=== PATIENT | male | born 1960 | race African-American/Black ===

== ENCOUNTER 2018-08-13 14:50 | Inpatient (IN) | payer OTHER ==
[2018-08-13 16:05] VITALS: BMI 17.7
--- NOTE | 2018-08-13 21:24 | HP ---
CIWA Score Nausea/Vomitin (vomiting x 2) Muscle Tremors: 3 Anxiety: 3 Agitation: 1-Slight > Activity Paroxysmal Sweats: 1-Minimal Palms Moist Orientation: 1-Uncertain about Date Tacttile Disturbances: 0-None Auditory Disturbances: 0-None Visual Disturbances: 0-None Headache: 3-Moderate CIWA-Ar Total Score: 15 - Admission Criteria [facility]AS Guidelines: Admission for Medically Managed Detox: Requires at least one of the followin. CIWA greater than 12 2. Seizures within the past 24 hours 3. Delirium tremens within the past 24 hours 4. Hallucinations within the past 24 hours 5. Acute intervention needed for co occurring medical disorder 6. Acute intervention needed for co occurring psychiatric disorder 7. Severe withdrawal that cannot be handled at a lower level of care (continued vomiting, continued diarrhea, abnormal vital signs) requiring intravenous medication and/or fluids 8. Admission ROS [facility] Chief Complaint: Alcohol withdrawal symptoms Allergies/Adverse Reactions: Allergies Allergy/AdvReac Type Severity Reaction Status Date / Time No Known Allergies Allergy Verified 08/13/18 21:45 History of Present Illness: 57 years old male with a long history of alcohol dependence is seeking admission to detox. Patient has been in multiple detox, last at [place], [place]. He has medical history of depression and asthma. He reports 14 years of sobriety and denies suicidal ideation at this time. This is his first admission to [facility]. Exam Limitations: No Limitations - Ebola screening Have you traveled outside of the country in the last 21 days: No Have you had contact with anyone from an Ebola affected area: No Have you been sick,other than usual withdrawal symptoms: No Do you have a fever: No - Review of Systems Constitutional: Chills, Loss of Appetite, Malaise, Unintentional Wgt. Loss ( reports 20 pounds weight loss in 2 months) EENT: reports: Other (wears reading glasses) Respiratory: reports: No Symptoms reported Cardiac: reports: No Symptoms Reported GI: reports: Poor Appetite, Poor Fluid Intake, Vomiting, Abdominal cramping : reports: No Symptoms Reported Musculoskeletal: reports: No Symptoms Reported, Back Pain Integumentary: reports: Dryness Neuro: reports: Tremors Endocrine: reports: No Symptoms Reported Hematology: reports: No Symptoms Reported Psychiatric: reports: Mood/Affect Appropiate, Orientated x3, Anxious, Depressed Other Systems: Reviewed and Negative Patient History - Patient Medical History Hx Anemia: No Hx Asthma: Yes (Not on medication) Hx Chronic Obstructive Pulmonary Disease (COPD): No Hx Cancer: No Hx Cardiac Disorders: No Hx Congestive Heart Failure: No Hx Hypertension: No Hx Hypercholesterolemia: No Hx Pacemaker: No HX Cerebrovascular Accident: No Hx Seizures: No Hx Dementia: No Hx Diabetes: No Hx Gastrointestinal Disorders: No Hx Liver Disease: No Hx Genitourinary Disorders: No Hx Sexually Transmitted Disorders: No Hx Renal Disease (ESRD): No Hx Thyroid Disease: No Hx Human Immunodeficiency Virus (HIV): No (Negtive 2017) Hx Hepatitis C: No Hx Depression: Yes (Risperdal, Wellbutrin) Hx Suicide Attempt: No (Denies suicidal ideation at this time) Hx Bipolar Disorder: No Hx Schizophrenia: No - Patient Surgical History Past Surgical History: No - PPD History Previous Implant?: Yes Documented Results: Negative w/o proof Implanted On Prior [facility] Admission?: No PPD to be Administered?: Yes - Reproductive History Patient is a Female of Child Bearing Age (11 -55 yrs old): No (MALE) - Smoking Cessation Smoking history: Current every day smoker Have you smoked in the past 12 months: Yes Aproximately how many cigarettes per day: 20 Hx Chewing Tobacco Use: Yes Initiated information on smoking cessation: No 'Breaking Loose' booklet given: 08/13/18 - Substance & Tx. History Hx Alcohol Use: Yes Hx Substance Use: Yes Hx Substance Use Treatment: Yes - Substances Abused Alcohol Route: Oral Frequency: Daily Amount used: BEER 24oz x 5 Age of first use: 16 Date of Last Use: 08/13/18 Family Disease History - Family Disease History Family History: Denies Admission Physical Exam [facility] - Vital Signs Vital Signs: Vital Signs - 24 hr 08/13/18 16:03 Temperature 99.0 F Pulse Rate 60 Respiratory 20 Rate Blood Pressure 149/98 - Physical General Appearance: Yes: Moderate Distress HEENTM: Yes: EOMI, Normal ENT Inspection, Normal Voice, KAT Respiratory: Yes: Lungs Clear, Normal Breath Sounds, No Respiratory Distress Neck: Yes: Supple Breast: Yes: Breast Exam Deferred Cardiology: Yes: Regular Rhythm, Regular Rate Abdominal: Yes: Normal Bowel Sounds, Soft Genitourinary: Yes: Within Normal Limits Back: Yes: Normal Inspection Musculoskeletal: Yes: Within Normal Limits Extremities: Yes: Tremors Neurological: Yes: supervisory examiner II-XII NML intact, Alert, Normal Mood/Affect Integumentary: Yes: Warm Lymphatic: Yes: Within Normal Limits - Diagnostic (1) Asthma Current Visit: Yes Status: Chronic Qualifiers: Asthma severity: mild Asthma persistence: intermittent (2) Depression Current Visit: Yes Status: Chronic Qualifiers: Depression Type: unspecified Qualified Code(s): F32.9 - Major depressive disorder, single episode, unspecified (3) Nicotine dependence Current Visit: Yes Status: Chronic Qualifiers: Nicotine product type: cigarettes Substance use status: uncomplicated Qualified Code(s): F17.210 - Nicotine dependence, cigarettes, uncomplicated (4) Alcohol dependence with uncomplicated withdrawal Current Visit: Yes Status: Acute (5) Barbiturate abuse Current Visit: Yes Status: Chronic Cleared for Admission S - Detox or Rehab [facility] Level of Care: Medically Managed Detox Regimen/Protocol: Librium S Breath Alcohol Content Breath Alcohol Content: 0 Urine Drug Screen - Results Drug Screen Negative: No Urine Drug Screen Results: BAR-Barbiturates
[2018-08-13] MEDS ORDERED: P-EPHED 60MG/TRIPROLIDI 2.5MG TABLET PO PRN (21:45)
[2018-08-13] MEDS ORDERED: LOPERAMIDE HCL 2 MG CAPSULE PO PRN (21:45)
[2018-08-13] MEDS ORDERED: guaiFENesin/D-METHORPHAN HB 10 ML UNIT-DOSE CUPS PO PRN (21:45)
[2018-08-13] MEDS ORDERED: MAGNESIUM HYDROX 2400MG/30ML ORAL SUSPENSION 30 ML CUP PO PRN (21:45)
[2018-08-13] MEDS ORDERED: NICOTINE POLACRILEX 2 MG GUM BUC PRN (21:45)
[2018-08-13] MEDS ORDERED: MAG HYDROX/AL HYDROX/SIMETH 30 ML UNIT-DOSE CUP PO PRN (21:45)
[2018-08-13] MEDS ORDERED: MAGNESIUM CITRATE 300 ML BOTTLE PO PRN (21:45)
[2018-08-13] MEDS ORDERED: IBUPROFEN 400 MG TABLET (FP) PO PRN (21:45)
[2018-08-13] MEDS ORDERED: chlordiazePOXIDE HCL 25 MG CAPSULE PO PRN (21:45)
[2018-08-13] MEDS ORDERED: MENTHOL/PHENOL 1 EACH UD MM PRN (21:45)
[2018-08-13] MEDS ORDERED: ACETAMINOPHEN 325 MG TABLET (FP) PO PRN (21:45)
[2018-08-13] MEDS ORDERED: MELATONIN 5 MG TABLETS PO PRN (22:00)
[2018-08-14] MEDS: chlordiazePOXIDE HCL 25 MG CAPSULE PO SCH ×5 (00:32→22:24)
[2018-08-14] MEDS: THIAMINE HCL 100 MG TABLET (FP) PO SCH ×2 (00:37→22:24)
[2018-08-14 02:56] LABS: URINE APPEARANCE CLEAR; URINE BILIRUBIN NEGATIVE (<2.0 mg/dL); URINE COLOR DKYELLOW; URINE GLUCOSE (UA) NEGATIVE (NEGATIVE); URINE KETONE NEGATIVE (NEGATIVE); URINE LEUK ESTERASE NEGATIVE (NEGATIVE); URINE NITRITE NEGATIVE (NEGATIVE); URINE PROTEIN 2+ (NEGATIVE)
[2018-08-14 03:11] LABS: URINE HYALINE CAST 3 /lpf; URINE MUCUS MODERATE
--- NOTE | 2018-08-14 08:21 | CONSULT ---
[facility] Psychiatric Consult - Data Date of interview: 08/14/18 Admission source: [facility] Identifying data: This is a 57 years old male, widowes, father of one , living alone, on PA support, with psychiatric hospitalization history, with a long history of alcohol and nicotine dependence is reporting withdrawal symptoms and seeking admission to detox. Substance Abuse History: Smoking history: Current every day smoker. Have you smoked in the past 12 months: Yes. Aproximately how many cigarettes per day: 20. Hx Chewing Tobacco Use: Yes. Initiated information on smoking cessation: No. 'Breaking Loose' booklet given: 08/13/18. - Substance & Tx. History. Hx Alcohol Use: Yes. Hx Substance Use: Yes. Hx Substance Use Treatment: Yes. - Substances Abused. Alcohol. Route: Oral. Frequency: Daily. Amount used: BEER 24oz x 5. Age of first use: 16. Date of Last Use: 08/13/18 Medical History: Asthma Psychiatric History: Patient reports history of depression, with most recent psychiatric admission on 2106 at [facility],denies suicidal and homicidal ideations, reports no psychiatrric medications taking this time. Physical/Sexual Abuse/Trauma History: Denies Additional Comment: Observation. Detox Unit Care Protocol Mental Status Exam - Mental Status Exam Alert and Oriented to: Person Cognitive Function: Fair Patient Appearance: Unkempt Mood: Fearful Affect: Mood Congruent Patient Behavior: Cooperative Speech Pattern: Appropriate Voice Loudness: Mildly Soft/Quiet Thought Process: Goal Oriented Thought Disorder: Being Controlled Hallucinations: Denies Suicidal Ideation: Denies Homicidal Ideation: Denies Insight/Judgement: Fair Sleep: Difficulty falling asleep Muscle strength/Tone: Normal Gait/Station: Normal Additional Comments: Observation. Detox Unit Care Protocol Psychiatric Findings - Problem List ([place] 1, 2,3) (1) Alcohol dependence with uncomplicated withdrawal Current Visit: Yes Status: Acute (2) Asthma Current Visit: Yes Status: Chronic Qualifiers: Asthma severity: mild Asthma persistence: intermittent (3) Barbiturate abuse Current Visit: Yes Status: Chronic (4) Depression Current Visit: Yes Status: Chronic Qualifiers: Depression Type: unspecified Qualified Code(s): F32.9 - Major depressive disorder, single episode, unspecified (5) Nicotine dependence Current Visit: Yes Status: Chronic Qualifiers: Nicotine product type: cigarettes Substance use status: uncomplicated Qualified Code(s): F17.210 - Nicotine dependence, cigarettes, uncomplicated - Initial Treatment Plan Initial Treatment Plan: Observation. Detox Unit Care Protocol
[2018-08-14 10:18] LABS: HEMATOCRIT 42.6 % (35.4-49); HEMOGLOBIN 14.1 GM/dL (11.7-16.9); MCH 33.8 pg (25.7-33.7); MCHC 33.2 g/dl (32.0-35.9); MEAN CELL VOLUME 101.8 fl (80-96); MEAN PLT VOLUME 8.3 fl (7.5-11.1); PLATELET COUNT 290 K/MM3 (134-434); RBC 4.19 M/mm3 (4.00-5.60); RDW 13.5 % (11.9-15.9); WHITE BLOOD COUNT 8.9 K/mm3 (4.0-10.0)
[2018-08-14] MEDS: NICOTINE 14 MG/24 HOURS TOPICAL PATCH TD SCH (10:22)
[2018-08-14] MEDS: PRENATAL VITAMINS W/ FOLIC ACID TABLET (FP) PO SCH (10:22)
[2018-08-14 10:55] LABS: ALBUMIN 3.7 g/dl (3.4-5.0); ALK PHOS 72 U/L (45-117); ANION GAP 5 MMOL/L (8-16); BILIRUBIN,TOTAL 0.9 mg/dL (0.2-1); BLOOD UREA NITROGEN 13 mg/dL (7-18); CALCIUM 8.8 mg/dL (8.5-10.1); CHLORIDE 110 mmol/L (98-107); CO2 28 mmol/L (21-32); CREATININE 0.9 mg/dL (0.55-1.3); GLUCOSE,RANDOM 78 mg/dL (74-106); POTASSIUM 4.4 mmol/L (3.5-5.1); SGOT/AST 24 U/L (15-37); SGPT/ALT 20 U/L (13-61); SODIUM 143 mmol/L (136-145); TOT PROT 7.6 g/dl (6.4-8.2)
--- NOTE | 2018-08-14 11:55 | EKG ---
Test Reason : Blood Pressure : / mmHG Vent. Rate : 050 BPM Atrial Rate : 050 BPM P-R Int : 122 ms QRS Dur : 084 ms QT Int : 472 ms P-R-T Axes : 070 061 060 degrees QTc Int : 430 ms POOR DATA QUALITY, INTERPRETATION MAY BE ADVERSELY AFFECTED SINUS BRADYCARDIA POSSIBLE INFERIOR INFARCT , AGE UNDETERMINED ABNORMAL ECG NO PREVIOUS ECGS AVAILABLE Confirmed by ALLISON CAMERON MD ([id number]) on 08/14/2018 11:54:53 AM Referred By: Confirmed By:ALLISON CAMERON MD
--- NOTE | 2018-08-14 14:30 | PN ---
[facility] CIWA - CIWA Score Nausea/Vomitin-No Nausea/No Vomiting Muscle Tremors: 4-Moderate,w/Arms Extend Anxiety: 3 Agitation: 1-Slight > Activity Paroxysmal Sweats: No Perspiration Orientation: 2-Disoriented Date<2 days Tacttile Disturbances: 2-Mild Itch/Numbness/Burn Auditory Disturbances: 0-None Visual Disturbances: 3-Moderate Sensitivity Headache: 0-None Present CIWA-Ar Total Score: 15 S Progress Note (SOAP) Subjective: Stomach Cramping, Tremors, Fatigue. Objective: PATIENT A & O X 2 (UNCERTAIN ABOUT CURRENT DAY / DATE). NO ACUTE DISTRESS. 08/14/18 14:27 Vital Signs Temperature 98.2 F 08/14/18 13:17 Pulse Rate 74 08/14/18 13:17 Respiratory Rate 18 08/14/18 13:17 Blood Pressure 134/91 08/14/18 13:17 O2 Sat by Pulse Oximetry (%) Laboratory Tests 08/14/18 08/14/18 08/14/18 00:00 07:00 07:00 WBC 8.9 RBC 4.19 Hgb 14.1 Hct 42.6 MCV 101.8 H MCH 33.8 H MCHC 33.2 RDW 13.5 Plt Count 290 MPV 8.3 Sodium 143 Potassium 4.4 Chloride 110 H Carbon Dioxide 28 Anion Gap 5 L BUN 13 Creatinine 0.9 Creat Clearance w eGFR > 60 Random Glucose 78 Calcium 8.8 Total Bilirubin 0.9 AST 24 ALT 20 Alkaline Phosphatase 72 Total Protein 7.6 Albumin 3.7 Urine Color Dkyellow Urine Appearance Clear Urine pH 5.0 Ur Specific [place] 1.026 Urine Protein 2+ H Urine Glucose (UA) Negative Urine Ketones Negative Urine Blood Negative Urine Nitrite Negative Urine Bilirubin Negative Urine Urobilinogen 2.0 Ur Leukocyte Esterase Negative Urine WBC (Auto) <1 Urine RBC (Auto) 2 Hyaline Casts 3 Urine Mucus Moderate RPR Titer 08/14/18 07:00 WBC RBC Hgb Hct MCV MCH MCHC RDW Plt Count MPV Sodium Potassium Chloride Carbon Dioxide Anion Gap BUN Creatinine Creat Clearance w eGFR Random Glucose Calcium Total Bilirubin AST ALT Alkaline Phosphatase Total Protein Albumin Urine Color Urine Appearance Urine pH Ur Specific [place] Urine Protein Urine Glucose (UA) Urine Ketones Urine Blood Urine Nitrite Urine Bilirubin Urine Urobilinogen Ur Leukocyte Esterase Urine WBC (Auto) Urine RBC (Auto) Hyaline Casts Urine Mucus RPR Titer Nonreactive LABS NOTED. 08/14/18 14:30 Assessment: 08/14/18 14:28 WITHDRAWAL SYMPTOMS. Plan: CONTINUE DETOX.
--- NOTE | 2018-08-14 16:56 | PN ---
S Progress Note Note: PATIENT APPLIED PAULA-BUCHANAN TO DENTURES INSTEAD OF FIXEDENT AND SWALLOWED A SMALL AMOUNT OF PAULA-BUCHANAN. PATIENT DENIES ANY PAIN TO ORAL MUCOSA OR ABDOMINAL PAIN, VOMITING OR DIARRHEA. ORAL MUCOSA MOIST AND PINK, NO VISIBLE ULCERATIONS OR INFLAMMATION NOTED. SKIN WARM AND DRY, EXT FULL ROM, AMB AD PHILIPPE. NO REDNESS OR SWELLING OF EXTREMITIES NOTED. PATIENT REMAINS ALERT AND ORIENTED X 3. WILL ORDER PERIDEX MM AND CONTINUE TO MONITOR.
[2018-08-14] MEDS ORDERED: CHLORHEXIDINE GLUCONATE 0.12% 15ML CUP MM SCH (22:00)
[2018-08-15] MEDS: chlordiazePOXIDE HCL 25 MG CAPSULE PO SCH ×3 (06:07→18:18)
[2018-08-15] MEDS: PRENATAL VITAMINS W/ FOLIC ACID TABLET (FP) PO SCH (10:45)
[2018-08-15] MEDS: NICOTINE 14 MG/24 HOURS TOPICAL PATCH TD SCH (10:46)
[2018-08-15] MEDS: CHLORHEXIDINE GLUCONATE 118 ML MOUTHWASH MM SCH (11:00)
--- NOTE | 2018-08-15 15:47 | PN ---
S CIWA - CIWA Score Nausea/Vomitin-Mild Nausea/No Vomiting Muscle Tremors: 2 Anxiety: 1-Mildly Anxious Agitation: 1-Slight > Activity Paroxysmal Sweats: No Perspiration Orientation: 0-Oriented Tacttile Disturbances: 0-None Auditory Disturbances: 0-None Visual Disturbances: 0-None Headache: 0-None Present CIWA-Ar Total Score: 5 [facility] Progress Note (SOAP) Subjective: pt states he is fine. O: Vital Signs - 24 hr 08/14/18 08/14/18 08/14/18 17:50 17:51 22:05 Temperature 98.2 F 98.2 F Pulse Rate 59 L 59 L 59 L Respiratory 18 18 18 Rate Blood Pressure 140/101 H 148/104 H 141/102 H 08/14/18 08/15/18 08/15/18 23:53 00:30 03:30 Temperature Pulse Rate Respiratory 18 18 Rate Blood Pressure 120/92 08/15/18 08/15/18 08/15/18 08:15 09:31 13:48 Temperature 97.9 F 98.2 F 98.1 F Pulse Rate 53 L 89 59 L Respiratory 18 20 18 Rate Blood Pressure 121/76 118/90 124/85 Laboratory Tests 08/14/18 08/14/18 08/14/18 00:00 07:00 07:00 WBC 8.9 RBC 4.19 Hgb 14.1 Hct 42.6 MCV 101.8 H MCH 33.8 H MCHC 33.2 RDW 13.5 Plt Count 290 MPV 8.3 Sodium 143 Potassium 4.4 Chloride 110 H Carbon Dioxide 28 Anion Gap 5 L BUN 13 Creatinine 0.9 Creat Clearance w eGFR > 60 Random Glucose 78 Calcium 8.8 Total Bilirubin 0.9 AST 24 ALT 20 Alkaline Phosphatase 72 Total Protein 7.6 Albumin 3.7 Urine Color Dkyellow Urine Appearance Clear Urine pH 5.0 Ur Specific [place] 1.026 Urine Protein 2+ H Urine Glucose (UA) Negative Urine Ketones Negative Urine Blood Negative Urine Nitrite Negative Urine Bilirubin Negative Urine Urobilinogen 2.0 Ur Leukocyte Esterase Negative Urine WBC (Auto) <1 Urine RBC (Auto) 2 Hyaline Casts 3 Urine Mucus Moderate RPR Titer 08/14/18 07:00 WBC RBC Hgb Hct MCV MCH MCHC RDW Plt Count MPV Sodium Potassium Chloride Carbon Dioxide Anion Gap BUN Creatinine Creat Clearance w eGFR Random Glucose Calcium Total Bilirubin AST ALT Alkaline Phosphatase Total Protein Albumin Urine Color Urine Appearance Urine pH Ur Specific [place] Urine Protein Urine Glucose (UA) Urine Ketones Urine Blood Urine Nitrite Urine Bilirubin Urine Urobilinogen Ur Leukocyte Esterase Urine WBC (Auto) Urine RBC (Auto) Hyaline Casts Urine Mucus RPR Titer Nonreactive VS OK Labs WNL a/p: alcohol use disorder: stable, completing alcohol detox protocol.
[2018-08-16] MEDS: CHLORHEXIDINE GLUCONATE 118 ML MOUTHWASH MM SCH ×3 (00:13→22:30)
[2018-08-16] MEDS: THIAMINE HCL 100 MG TABLET (FP) PO SCH ×2 (00:14→22:23)
[2018-08-16] MEDS: chlordiazePOXIDE 5 MG CAPSULE PO SCH ×4 (00:14→18:00)
--- NOTE | 2018-08-16 10:07 | PN ---
[facility] Progress Note (SOAP) Subjective: Interrupted sleep, non-productive cough and malaise Objective: 08/16/18 10:06 Vital Signs 08/16/18 08/16/18 08/16/18 03:30 06:00 06:30 Temperature 97.0 F L Pulse Rate 55 L Respiratory 16 18 18 Rate Blood Pressure 137/95 08/16/18 09:18 Temperature 98.7 F Pulse Rate 83 Respiratory 18 Rate Blood Pressure 133/107 H Laboratory Last Values WBC 8.9 K/mm3 (4.0-10.0) 08/14/18 07:00 RBC 4.19 M/mm3 (4.00-5.60) 08/14/18 07:00 Hgb 14.1 GM/dL (11.7-16.9) 08/14/18 07:00 Hct 42.6 % (35.4-49) 08/14/18 07:00 MCV 101.8 fl (80-96) H 08/14/18 07:00 MCH 33.8 pg (25.7-33.7) H 08/14/18 07:00 MCHC 33.2 g/dl (32.0-35.9) 08/14/18 07:00 RDW 13.5 % (11.9-15.9) 08/14/18 07:00 Plt Count 290 K/MM3 (134-434) 08/14/18 07:00 MPV 8.3 fl (7.5-11.1) 08/14/18 07:00 Sodium 143 mmol/L (136-145) 08/14/18 07:00 Potassium 4.4 mmol/L (3.5-5.1) 08/14/18 07:00 Chloride 110 mmol/L (98-107) H 08/14/18 07:00 Carbon Dioxide 28 mmol/L (21-32) 08/14/18 07:00 Anion Gap 5 MMOL/L (8-16) L 08/14/18 07:00 BUN 13 mg/dL (7-18) 08/14/18 07:00 Creatinine 0.9 mg/dL (0.55-1.3) 08/14/18 07:00 Creat Clearance w eGFR > 60 (>60) 08/14/18 07:00 Random Glucose 78 mg/dL (74-106) 08/14/18 07:00 Calcium 8.8 mg/dL (8.5-10.1) 08/14/18 07:00 Total Bilirubin 0.9 mg/dL (0.2-1) 08/14/18 07:00 AST 24 U/L (15-37) 08/14/18 07:00 ALT 20 U/L (13-61) 08/14/18 07:00 Alkaline Phosphatase 72 U/L (45-117) 08/14/18 07:00 Total Protein 7.6 g/dl (6.4-8.2) 08/14/18 07:00 Albumin 3.7 g/dl (3.4-5.0) 08/14/18 07:00 Urine Color Dkyellow 08/14/18 00:00 Urine Appearance Clear 08/14/18 00:00 Urine pH 5.0 (5.0-8.0) 08/14/18 00:00 Ur Specific [place] 1.026 (1.010-1.035) 08/14/18 00:00 Urine Protein 2+ (NEGATIVE) H 08/14/18 00:00 Urine Glucose (UA) Negative (NEGATIVE) 08/14/18 00:00 Urine Ketones Negative (NEGATIVE) 08/14/18 00:00 Urine Blood Negative (NEGATIVE) 08/14/18 00:00 Urine Nitrite Negative (NEGATIVE) 08/14/18 00:00 Urine Bilirubin Negative (<2.0 mg/dL) 08/14/18 00:00 Urine Urobilinogen 2.0 mg/dL (0.2-1.0) 08/14/18 00:00 Ur Leukocyte Esterase Negative (NEGATIVE) 08/14/18 00:00 Urine WBC (Auto) <1 /hpf (3-5) 08/14/18 00:00 Urine RBC (Auto) 2 /hpf (0-3) 08/14/18 00:00 Hyaline Casts 3 /lpf 08/14/18 00:00 Urine Mucus Moderate 08/14/18 00:00 RPR Titer Nonreactive (NONREACTIVE) 08/14/18 07:00 Labs noted No SOB, LCTA Assessment: 08/16/18 10:06 Withdrawal sx Cough Plan: Continue detox Cough medicine as ordered
[2018-08-16] MEDS: PRENATAL VITAMINS W/ FOLIC ACID TABLET (FP) PO SCH (11:00)
[2018-08-16] MEDS: NICOTINE 14 MG/24 HOURS TOPICAL PATCH TD SCH (11:00)
[2018-08-16] MEDS: chlordiazePOXIDE HCL 10 MG CAPSULE PO SCH (22:23)
[2018-08-17] MEDS: chlordiazePOXIDE HCL 10 MG CAPSULE PO SCH (05:14)
--- NOTE | 2018-08-17 08:28 | DS ---
[facility] Detox Discharge Summary Admission Date: 08/13/18 Discharge Date: 08/17/18 - History Present History: Alcohol Dependence Additional Comments: 57 years old male admitted on 08/13/18 for alcohol withdrawal sx completed alcohol detox regimen tolerated well denies alcohol withdrawal sx alert oriented x 3 no acute distress aftercare [facility] - Physical Exam Results Vital Signs: Vital Signs Temperature 97.5 F L 08/17/18 06:00 Pulse Rate 49 L 08/17/18 06:00 Respiratory Rate 18 08/17/18 06:00 Blood Pressure 104/66 08/17/18 06:00 O2 Sat by Pulse Oximetry (%) Pertinent Admission Physical Exam Findings: alcohol withdrawal sx Vital Signs Temperature 97.5 F L 08/17/18 06:00 Pulse Rate 49 L 08/17/18 06:00 Respiratory Rate 18 08/17/18 06:00 Blood Pressure 104/66 08/17/18 06:00 O2 Sat by Pulse Oximetry (%) Laboratory Last Values WBC 8.9 K/mm3 (4.0-10.0) 08/14/18 07:00 RBC 4.19 M/mm3 (4.00-5.60) 08/14/18 07:00 Hgb 14.1 GM/dL (11.7-16.9) 08/14/18 07:00 Hct 42.6 % (35.4-49) 08/14/18 07:00 MCV 101.8 fl (80-96) H 08/14/18 07:00 MCH 33.8 pg (25.7-33.7) H 08/14/18 07:00 MCHC 33.2 g/dl (32.0-35.9) 08/14/18 07:00 RDW 13.5 % (11.9-15.9) 08/14/18 07:00 Plt Count 290 K/MM3 (134-434) 08/14/18 07:00 MPV 8.3 fl (7.5-11.1) 08/14/18 07:00 Sodium 143 mmol/L (136-145) 08/14/18 07:00 Potassium 4.4 mmol/L (3.5-5.1) 08/14/18 07:00 Chloride 110 mmol/L (98-107) H 08/14/18 07:00 Carbon Dioxide 28 mmol/L (21-32) 08/14/18 07:00 Anion Gap 5 MMOL/L (8-16) L 08/14/18 07:00 BUN 13 mg/dL (7-18) 08/14/18 07:00 Creatinine 0.9 mg/dL (0.55-1.3) 08/14/18 07:00 Creat Clearance w eGFR > 60 (>60) 08/14/18 07:00 Random Glucose 78 mg/dL (74-106) 08/14/18 07:00 Calcium 8.8 mg/dL (8.5-10.1) 08/14/18 07:00 Total Bilirubin 0.9 mg/dL (0.2-1) 08/14/18 07:00 AST 24 U/L (15-37) 08/14/18 07:00 ALT 20 U/L (13-61) 08/14/18 07:00 Alkaline Phosphatase 72 U/L (45-117) 08/14/18 07:00 Total Protein 7.6 g/dl (6.4-8.2) 08/14/18 07:00 Albumin 3.7 g/dl (3.4-5.0) 08/14/18 07:00 Urine Color Dkyellow 08/14/18 00:00 Urine Appearance Clear 08/14/18 00:00 Urine pH 5.0 (5.0-8.0) 08/14/18 00:00 Ur Specific [place] 1.026 (1.010-1.035) 08/14/18 00:00 Urine Protein 2+ (NEGATIVE) H 08/14/18 00:00 Urine Glucose (UA) Negative (NEGATIVE) 08/14/18 00:00 Urine Ketones Negative (NEGATIVE) 08/14/18 00:00 Urine Blood Negative (NEGATIVE) 08/14/18 00:00 Urine Nitrite Negative (NEGATIVE) 08/14/18 00:00 Urine Bilirubin Negative (<2.0 mg/dL) 08/14/18 00:00 Urine Urobilinogen 2.0 mg/dL (0.2-1.0) 08/14/18 00:00 Ur Leukocyte Esterase Negative (NEGATIVE) 08/14/18 00:00 Urine WBC (Auto) <1 /hpf (3-5) 08/14/18 00:00 Urine RBC (Auto) 2 /hpf (0-3) 08/14/18 00:00 Hyaline Casts 3 /lpf 08/14/18 00:00 Urine Mucus Moderate 08/14/18 00:00 RPR Titer Nonreactive (NONREACTIVE) 08/14/18 07:00 lab noted - Treatment Hospital Course: Detox Protocol Followed, Detoxed Safely, Responded well, Discharged Condition Good, Rehab Referral Accepted Patient has Accepted a Rehab Referral to: [facility] - Medication Discharge Medications: Ambulatory Orders NK [No Known Home Medication] 08/13/18 - Diagnosis (1) Alcohol dependence with uncomplicated withdrawal Current Visit: Yes Status: Acute (2) Asthma Current Visit: Yes Status: Chronic Qualifiers: Asthma severity: mild Asthma persistence: intermittent Asthma complication type: uncomplicated Qualified Code(s): J45.20 - Mild intermittent asthma, uncomplicated (3) Nicotine dependence Current Visit: Yes Status: Acute Qualifiers: Nicotine product type: cigarettes Substance use status: in withdrawal Qualified Code(s): F17.213 - Nicotine dependence, cigarettes, with withdrawal - AMA Did Patient Leave Against Medical Advice: No
[2018-08-17 09:51] VITALS: BP 104/66; PULSE 49; TEMP 97.5
== END 2018-08-17 09:15 | disposition home or self-care (01) | DRG 775 ==
LOC: YASAS 14:50 → Y6N 21:26
PROC: HZ2ZZZZ Detoxification Services for Substance Abuse Treatment (ICD-10-PCS; principal; 2018-08-13)
DX: F10.230 Alcohol dependence with withdrawal, uncomplicated (principal); F13.10 Sedative, hypnotic or anxiolytic abuse, uncomplicated; F17.213 Nicotine dependence, cigarettes, with withdrawal; F32.9 Major depressive disorder, single episode, unspecified; J45.20 Mild intermittent asthma, uncomplicated
CPT/HCPCS: 36415; 80053; 81003; 81015; 85027; 86593; 93005; 93010

== ENCOUNTER 2018-09-06 11:07 | Inpatient (IN) | payer OTHER ==
[2018-09-06 11:28] VITALS: BMI 18.1
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
[2018-09-06] MEDS ORDERED: MAG HYDROX/AL HYDROX/SIMETH 30 ML UNIT-DOSE CUP PO PRN (11:58)
[2018-09-06] MEDS ORDERED: MAGNESIUM CITRATE 300 ML BOTTLE PO PRN (11:58)
[2018-09-06] MEDS ORDERED: ACETAMINOPHEN 325 MG TABLET (FP) PO PRN (11:58)
[2018-09-06] MEDS ORDERED: hydrOXYzine PAMOATE 25 MG CAPSULE (FP) PO PRN (11:58)
[2018-09-06] MEDS ORDERED: LOPERAMIDE HCL 2 MG CAPSULE PO PRN (11:58)
[2018-09-06] MEDS ORDERED: P-EPHED 60MG/TRIPROLIDI 2.5MG TABLET PO PRN (11:58)
[2018-09-06] MEDS ORDERED: chlordiazePOXIDE HCL 25 MG CAPSULE PO PRN (11:58)
[2018-09-06] MEDS ORDERED: MENTHOL/PHENOL 1 EACH UD MM PRN (11:58)
[2018-09-06] MEDS ORDERED: MAGNESIUM HYDROX 2400MG/30ML ORAL SUSPENSION 30 ML CUP PO PRN (11:58)
[2018-09-06] MEDS ORDERED: ALBUTEROL SO4 8 GM HFA INHALER IH PRN (12:00)
[2018-09-06] MEDS: NICOTINE 21 MG/24 HOURS TOPICAL PATCH TD SCH (13:28)
[2018-09-06] MEDS: chlordiazePOXIDE HCL 25 MG CAPSULE PO SCH ×2 (17:56→22:38)
[2018-09-06 18:02] LABS: URINE APPEARANCE CLEAR; URINE BILIRUBIN NEGATIVE (<2.0 mg/dL); URINE COLOR AMBER; URINE GLUCOSE (UA) NEGATIVE (NEGATIVE); URINE KETONE NEGATIVE (NEGATIVE); URINE LEUK ESTERASE NEGATIVE (NEGATIVE); URINE NITRITE NEGATIVE (NEGATIVE); URINE PROTEIN 2+ (NEGATIVE)
[2018-09-06 18:22] LABS: EPI CELLS RARE /HPF (FEW); GRANULAR CASTS 2 /lpf; URINE HYALINE CAST 27 /lpf; URINE MUCUS FEW
[2018-09-06] MEDS ORDERED: MELATONIN 5 MG TABLETS PO PRN (22:00)
[2018-09-06] MEDS: THIAMINE HCL 100 MG TABLET (FP) PO SCH (22:38)
[2018-09-06] MEDS: BUDESONIDE/FORMETEROL FUMARATE 80/4.5 mcg INHALER IH SCH (22:50)
[2018-09-07] MEDS: chlordiazePOXIDE HCL 25 MG CAPSULE PO SCH ×4 (04:12→22:11)
[2018-09-07] MEDS: guaiFENesin/D-METHORPHAN HB 10 ML UNIT-DOSE CUPS PO PRN ×2 (04:12→22:11)
--- NOTE | 2018-09-07 09:26 | EKG ---
Test Reason : Blood Pressure : / mmHG Vent. Rate : 082 BPM Atrial Rate : 082 BPM P-R Int : 128 ms QRS Dur : 074 ms QT Int : 390 ms P-R-T Axes : 075 063 058 degrees QTc Int : 455 ms NORMAL SINUS RHYTHM LOW VOLTAGE QRS T WAVE ABNORMALITY, CONSIDER ANTERIOR ISCHEMIA ABNORMAL ECG WHEN COMPARED WITH ECG OF 14-AUG-2018 00:44, VENT. RATE HAS INCREASED BY 32 BPM BORDERLINE CRITERIA FOR INFERIOR INFARCT ARE NO LONGER PRESENT Confirmed by JOSE JOHNSON MD ([id number]) on 09/07/2018 9:26:16 AM Referred By: Confirmed By:JOSE JOHNSON MD
[2018-09-07] MEDS: BUDESONIDE/FORMETEROL FUMARATE 80/4.5 mcg INHALER IH SCH ×2 (10:28→22:11)
[2018-09-07] MEDS: PRENATAL VITAMINS W/ FOLIC ACID TABLET (FP) PO SCH (10:28)
[2018-09-07] MEDS: ASPIRIN 81 MG CHEWABLE TABLETS PO SCH (10:28)
[2018-09-07] MEDS: NICOTINE 21 MG/24 HOURS TOPICAL PATCH TD SCH (10:29)
[2018-09-07 10:37] LABS: HEMATOCRIT 40.2 % (35.4-49); HEMOGLOBIN 14.3 GM/dL (11.7-16.9); MCH 35.6 pg (25.7-33.7); MCHC 35.6 g/dl (32.0-35.9); MEAN CELL VOLUME 99.9 fl (80-96); MEAN PLT VOLUME 8.3 fl (7.5-11.1); PLATELET COUNT 319 K/MM3 (134-434); RBC 4.02 M/mm3 (4.00-5.60); RDW 13.3 % (11.9-15.9); WHITE BLOOD COUNT 9.4 K/mm3 (4.0-10.0)
[2018-09-07 11:16] LABS: ALBUMIN 3.4 g/dl (3.4-5.0); ALK PHOS 85 U/L (45-117); ANION GAP 7 MMOL/L (8-16); BILIRUBIN,TOTAL 1.1 mg/dL (0.2-1); BLOOD UREA NITROGEN 13 mg/dL (7-18); CALCIUM 8.9 mg/dL (8.5-10.1); CHLORIDE 106 mmol/L (98-107); CO2 27 mmol/L (21-32); CREATININE 0.8 mg/dL (0.55-1.3); GLUCOSE,RANDOM 78 mg/dL (74-106); POTASSIUM 4.1 mmol/L (3.5-5.1); SGOT/AST 12 U/L (15-37); SGPT/ALT 21 U/L (13-61); SODIUM 140 mmol/L (136-145); TOT PROT 7.4 g/dl (6.4-8.2)
--- NOTE | 2018-09-07 16:14 | PN ---
[facility] CIWA - CIWA Score Nausea/Vomitin-No Nausea/No Vomiting Muscle Tremors: 3 Anxiety: 3 Agitation: 2 Paroxysmal Sweats: 1-Minimal Palms Moist Orientation: 1-Uncertain about Date Tacttile Disturbances: 0-None Auditory Disturbances: 0-None Visual Disturbances: 0-None Headache: 2-Mild CIWA-Ar Total Score: 12 S Progress Note (SOAP) Subjective: tremor sweat anxiety restlessness agitative Objective: 09/07/18 16:15 Vital Signs Temperature 97.5 F L 09/07/18 15:24 Pulse Rate 86 09/07/18 15:24 Respiratory Rate 16 09/07/18 15:24 Blood Pressure 126/92 09/07/18 15:24 O2 Sat by Pulse Oximetry (%) Laboratory Last Values WBC 9.4 K/mm3 (4.0-10.0) 09/07/18 07:15 RBC 4.02 M/mm3 (4.00-5.60) 09/07/18 07:15 Hgb 14.3 GM/dL (11.7-16.9) 09/07/18 07:15 Hct 40.2 % (35.4-49) 09/07/18 07:15 MCV 99.9 fl (80-96) H 09/07/18 07:15 MCH 35.6 pg (25.7-33.7) H 09/07/18 07:15 MCHC 35.6 g/dl (32.0-35.9) 09/07/18 07:15 RDW 13.3 % (11.9-15.9) 09/07/18 07:15 Plt Count 319 K/MM3 (134-434) 09/07/18 07:15 MPV 8.3 fl (7.5-11.1) 09/07/18 07:15 Sodium 140 mmol/L (136-145) 09/07/18 07:15 Potassium 4.1 mmol/L (3.5-5.1) 09/07/18 07:15 Chloride 106 mmol/L (98-107) 09/07/18 07:15 Carbon Dioxide 27 mmol/L (21-32) 09/07/18 07:15 Anion Gap 7 MMOL/L (8-16) L 09/07/18 07:15 BUN 13 mg/dL (7-18) 09/07/18 07:15 Creatinine 0.8 mg/dL (0.55-1.3) 09/07/18 07:15 Creat Clearance w eGFR > 60 (>60) 09/07/18 07:15 Random Glucose 78 mg/dL (74-106) 09/07/18 07:15 Calcium 8.9 mg/dL (8.5-10.1) 09/07/18 07:15 Total Bilirubin 1.1 mg/dL (0.2-1) H 09/07/18 07:15 AST 12 U/L (15-37) L 09/07/18 07:15 ALT 21 U/L (13-61) 09/07/18 07:15 Alkaline Phosphatase 85 U/L (45-117) 09/07/18 07:15 Total Protein 7.4 g/dl (6.4-8.2) 09/07/18 07:15 Albumin 3.4 g/dl (3.4-5.0) 09/07/18 07:15 Urine Color Karie 09/06/18 14:56 Urine Appearance Clear 09/06/18 14:56 Urine pH 5.0 (5.0-8.0) 09/06/18 14:56 Ur Specific [place] 1.021 (1.010-1.035) 09/06/18 14:56 Urine Protein 2+ (NEGATIVE) H 09/06/18 14:56 Urine Glucose (UA) Negative (NEGATIVE) 09/06/18 14:56 Urine Ketones Negative (NEGATIVE) 09/06/18 14:56 Urine Blood Negative (NEGATIVE) 09/06/18 14:56 Urine Nitrite Negative (NEGATIVE) 09/06/18 14:56 Urine Bilirubin Negative (<2.0 mg/dL) 09/06/18 14:56 Urine Urobilinogen 2.0 mg/dL (0.2-1.0) 09/06/18 14:56 Ur Leukocyte Esterase Negative (NEGATIVE) 09/06/18 14:56 Urine WBC (Auto) 4 /hpf (3-5) 09/06/18 14:56 Urine RBC (Auto) 1 /hpf (0-3) 09/06/18 14:56 Ur Epithelial Cells Rare /HPF (FEW) 09/06/18 14:56 Hyaline Casts 27 /lpf 09/06/18 14:56 Granular Casts 2 /lpf 09/06/18 14:56 Urine Mucus Few 09/06/18 14:56 RPR Titer Nonreactive (NONREACTIVE) 09/07/18 07:15 lab noted Assessment: 09/07/18 16:15 withdrawal sx Plan: continue detox
[2018-09-07] MEDS: THIAMINE HCL 100 MG TABLET (FP) PO SCH (22:12)
[2018-09-08] MEDS: chlordiazePOXIDE HCL 25 MG CAPSULE PO SCH ×2 (05:34→10:04)
[2018-09-08] MEDS: NICOTINE 21 MG/24 HOURS TOPICAL PATCH TD SCH (10:04)
[2018-09-08] MEDS: ASPIRIN 81 MG CHEWABLE TABLETS PO SCH (10:04)
[2018-09-08] MEDS: BUDESONIDE/FORMETEROL FUMARATE 80/4.5 mcg INHALER IH SCH ×2 (10:04→23:28)
[2018-09-08] MEDS: PRENATAL VITAMINS W/ FOLIC ACID TABLET (FP) PO SCH (10:04)
[2018-09-08] MEDS: guaiFENesin/D-METHORPHAN HB 10 ML UNIT-DOSE CUPS PO PRN ×2 (10:05→17:40)
--- NOTE | 2018-09-08 10:36 | PN ---
[facility] CIWA - CIWA Score Nausea/Vomitin-No Nausea/No Vomiting Muscle Tremors: 4-Moderate,w/Arms Extend Anxiety: 3 Agitation: 3 Paroxysmal Sweats: 3 Orientation: 0-Oriented Tacttile Disturbances: 0-None Auditory Disturbances: 0-None Visual Disturbances: 0-None Headache: 0-None Present CIWA-Ar Total Score: 13 S Progress Note (SOAP) Subjective: shakes sweats interrupted sleep body aches irritable Objective: 09/08/18 10:35 Vital Signs Temperature 97.7 F 09/08/18 09:42 Pulse Rate 60 09/08/18 09:42 Respiratory Rate 18 09/08/18 09:42 Blood Pressure 111/76 09/08/18 09:42 O2 Sat by Pulse Oximetry (%) Laboratory Tests 09/06/18 09/07/18 09/07/18 14:56 07:15 07:15 WBC 9.4 RBC 4.02 Hgb 14.3 Hct 40.2 MCV 99.9 H MCH 35.6 H MCHC 35.6 RDW 13.3 Plt Count 319 MPV 8.3 Sodium 140 Potassium 4.1 Chloride 106 Carbon Dioxide 27 Anion Gap 7 L BUN 13 Creatinine 0.8 Creat Clearance w eGFR > 60 Random Glucose 78 Calcium 8.9 Total Bilirubin 1.1 H AST 12 L ALT 21 Alkaline Phosphatase 85 Total Protein 7.4 Albumin 3.4 Urine Color Karie Urine Appearance Clear Urine pH 5.0 Ur Specific [place] 1.021 Urine Protein 2+ H Urine Glucose (UA) Negative Urine Ketones Negative Urine Blood Negative Urine Nitrite Negative Urine Bilirubin Negative Urine Urobilinogen 2.0 Ur Leukocyte Esterase Negative Urine WBC (Auto) 4 Urine RBC (Auto) 1 Ur Epithelial Cells Rare Hyaline Casts 27 Granular Casts 2 Urine Mucus Few RPR Titer 09/07/18 07:15 WBC RBC Hgb Hct MCV MCH MCHC RDW Plt Count MPV Sodium Potassium Chloride Carbon Dioxide Anion Gap BUN Creatinine Creat Clearance w eGFR Random Glucose Calcium Total Bilirubin AST ALT Alkaline Phosphatase Total Protein Albumin Urine Color Urine Appearance Urine pH Ur Specific [place] Urine Protein Urine Glucose (UA) Urine Ketones Urine Blood Urine Nitrite Urine Bilirubin Urine Urobilinogen Ur Leukocyte Esterase Urine WBC (Auto) Urine RBC (Auto) Ur Epithelial Cells Hyaline Casts Granular Casts Urine Mucus RPR Titer Nonreactive aaox3 ambulating no acute distress Assessment: 09/08/18 10:36 withdrawal sx Plan: continue detox increase fluids
[2018-09-08] MEDS ORDERED: chlordiazePOXIDE 5 MG CAPSULE PO SCH (17:00)
--- NOTE | 2018-09-08 20:54 | PN ---
[facility] Progress Note Note: Pt states he was getting out of his bed and his feet got caught in the bedsheets and fell forward on his chin.Pt denies LOC, no seizures. Vital Signs - 24 hr 09/07/18 09/08/18 09/08/18 22:14 00:30 03:30 Temperature 97.7 F Pulse Rate 75 Respiratory 18 18 18 Rate Blood Pressure 130/82 09/08/18 09/08/18 09/08/18 08:06 09:42 14:18 Temperature 97.9 F 97.7 F 97.9 F Pulse Rate 80 60 94 H Respiratory 18 18 18 Rate Blood Pressure 120/95 111/76 123/95 09/08/18 18:25 Temperature 97.7 F Pulse Rate 91 H Respiratory 18 Rate Blood Pressure 138/94 VS WNL BP 125/81, PR81 chin area with thick tsang, bleeding, open area- could not determine if it is a laceration warranting repair alert and oriented and ambulatory a/p: unwitnessed fall: pt is alert and oriented- refusing to go to ER, hold librium tonight d/w pt the benefits of going to ER- tetanus vaccine, lac repair and perhaps a head CT for an unwittnesed fall- pt refused transfer laceration/wound: clean wound daily, apply bacitracin
[2018-09-08] MEDS: BACITRACIN 0.9 GM PACKET TP SCH (23:27)
[2018-09-08] MEDS: THIAMINE HCL 100 MG TABLET (FP) PO SCH (23:28)
[2018-09-09] MEDS: chlordiazePOXIDE 5 MG CAPSULE PO SCH ×3 (00:06→10:58)
[2018-09-09] MEDS: PRENATAL VITAMINS W/ FOLIC ACID TABLET (FP) PO SCH (10:57)
[2018-09-09] MEDS: BACITRACIN 0.9 GM PACKET TP SCH ×2 (10:57→23:06)
[2018-09-09] MEDS: NICOTINE 21 MG/24 HOURS TOPICAL PATCH TD SCH (10:57)
[2018-09-09] MEDS: ASPIRIN 81 MG CHEWABLE TABLETS PO SCH (10:57)
[2018-09-09] MEDS: BUDESONIDE/FORMETEROL FUMARATE 80/4.5 mcg INHALER IH SCH ×2 (11:00→23:06)
--- NOTE | 2018-09-09 13:25 | DS ---
[facility] Detox Discharge Summary Admission Date: 09/06/18 Discharge Date: 09/09/18 - History Present History: Alcohol Dependence - Physical Exam Results Vital Signs: Vital Signs Temperature 98.3 F 09/09/18 09:59 Pulse Rate 91 H 09/09/18 09:59 Respiratory Rate 20 09/09/18 09:59 Blood Pressure 119/97 09/09/18 09:59 O2 Sat by Pulse Oximetry (%) - Treatment Hospital Course: Detox Protocol Followed, Detoxed Safely, Responded well, Discharged Condition Good, Rehab Referral Accepted - Medication Discharge Medications: Ambulatory Orders Albuterol Sulfate Inhaler - [Ventolin Hfa Inhaler -] 2 inh PO Q4H PRN 09/06/18 Aspirin 81 mg PO DAILY 09/06/18 Budesonide/Formeterol Fumarate [SYMBICORT 80/4.5mcg -] 1 inh PO BID 09/06/18 Bupropion HCl [Wellbutrin -] 75 mg PO BID 09/06/18 Risperidone [Risperdal -] 1 mg PO HS 09/06/18 - AMA Did Patient Leave Against Medical Advice: No (referred to outpatient rehab)
--- NOTE | 2018-09-09 15:45 | PN ---
[facility] Progress Note Note: pt will stay until tomorrow to complete detox. pt is scheduled for rehab for tomorrow.
[2018-09-09] MEDS ORDERED: chlordiazePOXIDE HCL 10 MG CAPSULE PO SCH (17:00)
[2018-09-09] MEDS: chlordiazePOXIDE HCL 10 MG CAPSULE PO SCH ×3 (17:26→23:06)
[2018-09-09] MEDS: guaiFENesin/D-METHORPHAN HB 10 ML UNIT-DOSE CUPS PO PRN (19:51)
[2018-09-09] MEDS: THIAMINE HCL 100 MG TABLET (FP) PO SCH (23:06)
[2018-09-10] MEDS: chlordiazePOXIDE HCL 10 MG CAPSULE PO SCH (06:52)
--- NOTE | 2018-09-10 08:41 | DS ---
[facility] Detox Discharge Summary Admission Date: 09/06/18 Discharge Date: 09/10/18 - History Present History: Alcohol Dependence - Physical Exam Results Vital Signs: Vital Signs Temperature 98.2 F 09/10/18 06:00 Pulse Rate 80 09/10/18 06:00 Respiratory Rate 18 09/10/18 06:00 Blood Pressure 116/90 09/10/18 06:00 O2 Sat by Pulse Oximetry (%) - Treatment Hospital Course: Detox Protocol Followed, Detoxed Safely, Responded well, Discharged Condition Good, Rehab Referral Accepted - Medication Discharge Medications: Ambulatory Orders Albuterol Sulfate Inhaler - [Ventolin Hfa Inhaler -] 2 inh PO Q4H PRN 09/06/18 Aspirin 81 mg PO DAILY 09/06/18 Budesonide/Formeterol Fumarate [SYMBICORT 80/4.5mcg -] 1 inh PO BID 09/06/18 Bupropion HCl [Wellbutrin -] 75 mg PO BID 09/06/18 Risperidone [Risperdal -] 1 mg PO HS 09/06/18 - Diagnosis (1) Alcohol dependence with uncomplicated withdrawal Current Visit: Yes Status: Chronic (2) COPD (chronic obstructive pulmonary disease) with emphysema Current Visit: Yes Status: Acute Qualifiers: Emphysema type: other Qualified Code(s): J43.8 - Other emphysema (3) Weight loss Current Visit: Yes Status: Acute (4) Nicotine dependence Current Visit: Yes Status: Chronic Qualifiers: Nicotine product type: cigarettes Substance use status: in withdrawal Qualified Code(s): F17.213 - Nicotine dependence, cigarettes, with withdrawal (5) Asthma Current Visit: Yes Status: Chronic Qualifiers: Asthma severity: mild Asthma persistence: intermittent Asthma complication type: uncomplicated Qualified Code(s): J45.20 - Mild intermittent asthma, uncomplicated (6) Barbiturate abuse Current Visit: No Status: Chronic (7) Depression Current Visit: No Status: Chronic Qualifiers: Depression Type: unspecified Qualified Code(s): F32.9 - Major depressive disorder, single episode, unspecified - AMA Did Patient Leave Against Medical Advice: No (referred to [facility] rehab)
[2018-09-10 09:51] VITALS: BP 130/91; PULSE 70; TEMP 97.9
== END 2018-09-10 09:15 | disposition home or self-care (01) | DRG 775 ==
LOC: YASAS 11:07 → Y6N 12:41
PROC: HZ2ZZZZ Detoxification Services for Substance Abuse Treatment (ICD-10-PCS; principal; 2018-09-06)
DX: F10.230 Alcohol dependence with withdrawal, uncomplicated (principal); F13.10 Sedative, hypnotic or anxiolytic abuse, uncomplicated; F17.213 Nicotine dependence, cigarettes, with withdrawal; F20.9 Schizophrenia, unspecified; F32.9 Major depressive disorder, single episode, unspecified; F31.9 Bipolar disorder, unspecified; J43.8 Other emphysema; J45.20 Mild intermittent asthma, uncomplicated; R63.4 Abnormal weight loss; Z68.1 Body mass index [BMI] 19.9 or less, adult; S01.81XA Laceration without foreign body of other part of head, initial encounter; W06.XXXA Fall from bed, initial encounter; Y93.89 Activity, other specified; Y92.230 Patient room in hospital as the place of occurrence of the external cause; Y99.8 Other external cause status
CPT/HCPCS: 36415; 80053; 81003; 81015; 85027; 86593; 93005; 93010

== ENCOUNTER 2019-01-14 14:44 | Inpatient (IN) | payer OTHER ==
[2019-01-14 16:47] VITALS: BMI 18.4
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
[2019-01-14] MEDS ORDERED: MENTHOL/PHENOL 1 EACH UD MM PRN (18:03)
[2019-01-14] MEDS ORDERED: ONDANSETRON *ODT* 4 MG TABLET SL PRN (18:03)
[2019-01-14] MEDS ORDERED: hydrOXYzine PAMOATE 25 MG CAPSULE (FP) PO PRN (18:03)
[2019-01-14] MEDS ORDERED: BACLOFEN 10 MG TABLET (FP) PO PRN (18:03)
[2019-01-14] MEDS ORDERED: METHOCARBAMOL 500 MG TABLET PO PRN (18:03)
[2019-01-14] MEDS ORDERED: MAG HYDROX/AL HYDROX/SIMETH 30 ML UNIT-DOSE CUP PO PRN (18:03)
[2019-01-14] MEDS ORDERED: IBUPROFEN 400 MG TABLET (FP) PO PRN (18:03)
[2019-01-14] MEDS ORDERED: chlordiazePOXIDE HCL 25 MG CAPSULE PO PRN (18:03)
[2019-01-14] MEDS ORDERED: BISMUTH SUBSALICYLATE 524 MG/30 ML UD PO PRN (18:03)
[2019-01-14] MEDS ORDERED: MAGNESIUM CITRATE 300 ML BOTTLE PO PRN (18:03)
[2019-01-14] MEDS ORDERED: MAGNESIUM HYDROX 2400MG/30ML ORAL SUSPENSION 30 ML CUP PO PRN (18:03)
[2019-01-14] MEDS ORDERED: ACETAMINOPHEN 325 MG TABLET (FP) PO PRN ×2 (18:03)
[2019-01-14] MEDS ORDERED: ALBUTEROL SO4 2.5/IPRATROPIUM 0.5 INH SOL 3 ML VIAL.NEB. NEB PRN (18:07)
[2019-01-14] MEDS ORDERED: ALBUTEROL SO4 2.5/IPRATROPIUM 0.5 INH SOL 3 ML VIAL.NEB. NEB ONE (18:30)
[2019-01-14] MEDS: NICOTINE 21 MG/24 HOURS TOPICAL PATCH TD SCH (19:10)
[2019-01-14] MEDS: chlordiazePOXIDE HCL 25 MG CAPSULE PO SCH (22:17)
[2019-01-14] MEDS: THIAMINE HCL 100 MG TABLET (FP) PO SCH (22:17)
[2019-01-14] MEDS: MELATONIN 5 MG TABLETS PO PRN (22:17)
[2019-01-14] MEDS: BUDESONIDE/FORMETEROL FUMARATE 80/4.5 mcg INHALER IH SCH (22:18)
[2019-01-15] MEDS: chlordiazePOXIDE HCL 25 MG CAPSULE PO SCH ×4 (06:25→22:13)
[2019-01-15] MEDS: NICOTINE 21 MG/24 HOURS TOPICAL PATCH TD SCH (10:31)
[2019-01-15] MEDS: ASPIRIN 81 MG CHEWABLE TABLETS PO SCH (10:31)
[2019-01-15] MEDS: PRENATAL VITAMINS W/ FOLIC ACID TABLET (FP) PO SCH (10:31)
[2019-01-15] MEDS: AMMONIUM LACTATE 12% LOTION 225 GM BOTTLE TP SCH (10:32)
[2019-01-15 10:54] LABS: HEMATOCRIT 41.4 % (35.4-49); HEMOGLOBIN 14.1 GM/dL (11.7-16.9); MCH 34.1 pg (25.7-33.7); MCHC 33.9 g/dl (32.0-35.9); MEAN CELL VOLUME 100.6 fl (80-96); MEAN PLT VOLUME 8.3 fl (7.5-11.1); PLATELET COUNT 269 K/MM3 (134-434); RBC 4.12 M/mm3 (4.00-5.60); RDW 13.9 % (11.9-15.9); WHITE BLOOD COUNT 8.5 K/mm3 (4.0-10.0)
[2019-01-15 10:57] LABS: ALBUMIN 3.6 g/dl (3.4-5.0); ALK PHOS 80 U/L (45-117); ANION GAP 3 MMOL/L (8-16); BILIRUBIN,TOTAL 1.1 mg/dL (0.2-1); BLOOD UREA NITROGEN 10 mg/dL (7-18); CALCIUM 9.5 mg/dL (8.5-10.1); CHLORIDE 105 mmol/L (98-107); CO2 29 mmol/L (21-32); GLUCOSE,RANDOM 107 mg/dL (74-106); POTASSIUM 4.4 mmol/L (3.5-5.1); SGOT/AST 18 U/L (15-37); SGPT/ALT 18 U/L (13-61); SODIUM 137 mmol/L (136-145); TOT PROT 7.6 g/dl (6.4-8.2)
[2019-01-15] MEDS: BUDESONIDE/FORMETEROL FUMARATE 80/4.5 mcg INHALER IH SCH ×2 (11:06→22:13)
--- NOTE | 2019-01-15 12:16 | EKG ---
Test Reason : Blood Pressure : / mmHG Vent. Rate : 045 BPM Atrial Rate : 045 BPM P-R Int : 148 ms QRS Dur : 074 ms QT Int : 514 ms P-R-T Axes : 072 053 061 degrees QTc Int : 444 ms SINUS BRADYCARDIA OTHERWISE NORMAL ECG WHEN COMPARED WITH ECG OF 06-SEP-2018 13:11, VENT. RATE HAS DECREASED BY 37 BPM Confirmed by ALLISON CAMERON MD ([id number]) on 01/15/2019 12:16:22 PM Referred By: Confirmed By:ALLISON CAMERON MD
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
--- NOTE | 2019-01-15 14:58 | PN ---
S CIWA - CIWA Score Nausea/Vomitin-No Nausea/No Vomiting Muscle Tremors: None Anxiety: 2 Agitation: 0-Normal Activity Paroxysmal Sweats: 2 Orientation: 2-Disoriented Date<2 days Tacttile Disturbances: 2-Mild Itch/Numbness/Burn Auditory Disturbances: 1-Very Mild Visual Disturbances: 3-Moderate Sensitivity Headache: 0-None Present CIWA-Ar Total Score: 12 BHS Progress Note (SOAP) Subjective: Fatigue, Anxious, Sweating, Stomach Cramping, Poor Appetite. Objective: PATIENT A & O X 2 (UNCERTAIN ABOUT CURRENT DAY / DATE). PATIENT OBSERVED AMBULATING ON UNIT. IN NO ACUTE DISTRESS. 01/15/19 14:59 Vital Signs Temperature 97.9 F 01/15/19 14:15 Pulse Rate 59 L 01/15/19 14:15 Respiratory Rate 18 01/15/19 14:15 Blood Pressure 145/98 01/15/19 14:15 O2 Sat by Pulse Oximetry (%) Laboratory Tests 01/15/19 01/15/19 01/15/19 07:00 07:00 07:00 WBC 8.5 RBC 4.12 Hgb 14.1 Hct 41.4 MCV 100.6 H MCH 34.1 H MCHC 33.9 RDW 13.9 Plt Count 269 MPV 8.3 Sodium 137 Potassium 4.4 Chloride 105 Carbon Dioxide 29 Anion Gap 3 L BUN 10 Creatinine 1.0 Creat Clearance w eGFR 77.02 Random Glucose 107 H Calcium 9.5 Total Bilirubin 1.1 H AST 18 ALT 18 Alkaline Phosphatase 80 Total Protein 7.6 Albumin 3.6 RPR Titer Nonreactive LABS NOTED. Assessment: 01/15/19 15:00 WITHDRAWAL SYMPTOMS. Plan: CONTINUE DETOX. ENSURE BID FOR CALORIE SUPPLEMENTATION.
[2019-01-15] MEDS: ALBUTEROL SO4 8 GM HFA INHALER IH PRN (19:35)
[2019-01-15] MEDS: THIAMINE HCL 100 MG TABLET (FP) PO SCH (22:12)
[2019-01-15] MEDS: risperiDONE 1 MG TABLET (FP) PO SCH (22:13)
[2019-01-16] MEDS: chlordiazePOXIDE HCL 25 MG CAPSULE PO SCH ×3 (05:58→18:02)
[2019-01-16] MEDS: NICOTINE 21 MG/24 HOURS TOPICAL PATCH TD SCH (10:36)
[2019-01-16] MEDS: PRENATAL VITAMINS W/ FOLIC ACID TABLET (FP) PO SCH (10:36)
[2019-01-16] MEDS: ASPIRIN 81 MG CHEWABLE TABLETS PO SCH (10:36)
[2019-01-16] MEDS: AMMONIUM LACTATE 12% LOTION 225 GM BOTTLE TP SCH (10:37)
[2019-01-16] MEDS: BUDESONIDE/FORMETEROL FUMARATE 80/4.5 mcg INHALER IH SCH ×2 (10:37→22:25)
--- NOTE | 2019-01-16 12:17 | PN ---
BHS CIWA - CIWA Score Nausea/Vomitin-No Nausea/No Vomiting Muscle Tremors: None Anxiety: 1-Mildly Anxious Agitation: 0-Normal Activity Paroxysmal Sweats: No Perspiration Orientation: 0-Oriented Tacttile Disturbances: 0-None Auditory Disturbances: 0-None Visual Disturbances: 0-None Headache: 0-None Present CIWA-Ar Total Score: 1 BHS Progress Note (SOAP) Subjective: pt without complaints, O: Vital Signs - 24 hr 01/15/19 01/15/19 01/15/19 14:15 17:12 21:25 Temperature 97.9 F 98.2 F 98.2 F Pulse Rate 59 L 53 L 62 Respiratory 18 18 18 Rate Blood Pressure 145/98 133/97 134/85 01/16/19 01/16/19 01/16/19 00:30 03:30 06:00 Temperature 96.6 F L Pulse Rate 88 Respiratory 18 18 16 Rate Blood Pressure 132/92 01/16/19 11:15 Temperature 97.9 F Pulse Rate 71 Respiratory 18 Rate Blood Pressure 127/81 Laboratory Tests 01/15/19 01/15/19 01/15/19 07:00 07:00 07:00 WBC 8.5 RBC 4.12 Hgb 14.1 Hct 41.4 MCV 100.6 H MCH 34.1 H MCHC 33.9 RDW 13.9 Plt Count 269 MPV 8.3 Sodium 137 Potassium 4.4 Chloride 105 Carbon Dioxide 29 Anion Gap 3 L BUN 10 Creatinine 1.0 Creat Clearance w eGFR 77.02 Random Glucose 107 H Calcium 9.5 Total Bilirubin 1.1 H AST 18 ALT 18 Alkaline Phosphatase 80 Total Protein 7.6 Albumin 3.6 RPR Titer Nonreactive high MCV incrased bili decreased GFR a/p: continue alcohol detox protocol pt doing well
[2019-01-16] MEDS: THIAMINE HCL 100 MG TABLET (FP) PO SCH (22:23)
[2019-01-16] MEDS: chlordiazePOXIDE HCL 10 MG CAPSULE PO SCH (22:23)
[2019-01-16] MEDS: risperiDONE 1 MG TABLET (FP) PO SCH (22:23)
[2019-01-16] MEDS: ALBUTEROL SO4 8 GM HFA INHALER IH PRN (22:24)
[2019-01-16] MEDS ORDERED: chlordiazePOXIDE HCL 10 MG CAPSULE PO PRN (23:00)
[2019-01-17] MEDS: chlordiazePOXIDE HCL 10 MG CAPSULE PO SCH ×4 (06:10→22:46)
[2019-01-17] MEDS: ALBUTEROL SO4 8 GM HFA INHALER IH PRN (06:11)
[2019-01-17] MEDS: ASPIRIN 81 MG CHEWABLE TABLETS PO SCH (10:10)
[2019-01-17] MEDS: PRENATAL VITAMINS W/ FOLIC ACID TABLET (FP) PO SCH (10:11)
[2019-01-17] MEDS: NICOTINE 21 MG/24 HOURS TOPICAL PATCH TD SCH (10:11)
[2019-01-17] MEDS: BUDESONIDE/FORMETEROL FUMARATE 80/4.5 mcg INHALER IH SCH ×2 (10:11→22:46)
[2019-01-17] MEDS: AMMONIUM LACTATE 12% LOTION 225 GM BOTTLE TP SCH (10:15)
--- NOTE | 2019-01-17 14:56 | PN ---
S CIWA - CIWA Score Nausea/Vomitin-No Nausea/No Vomiting Muscle Tremors: 2 Anxiety: 1-Mildly Anxious Agitation: 2 Paroxysmal Sweats: 1-Minimal Palms Moist Orientation: 0-Oriented Tacttile Disturbances: 0-None Auditory Disturbances: 0-None Visual Disturbances: 0-None Headache: 2-Mild CIWA-Ar Total Score: 8 BHS Progress Note (SOAP) Subjective: sweats mild headache tremor Objective: 01/17/19 14:53 AOX3, no distress EENT:WNL Ambulating in the unit withdrawal symptoms persists Assessment: 01/17/19 14:54 Vital Signs 01/17/19 01/17/19 09:45 14:32 Temperature 98.4 F 97.9 F Pulse Rate 78 88 Respiratory 18 18 Rate Blood Pressure 104/74 110/85 Laboratory Last Values WBC 8.5 K/mm3 (4.0-10.0) 01/15/19 07:00 RBC 4.12 M/mm3 (4.00-5.60) 01/15/19 07:00 Hgb 14.1 GM/dL (11.7-16.9) 01/15/19 07:00 Hct 41.4 % (35.4-49) 01/15/19 07:00 MCV 100.6 fl (80-96) H 01/15/19 07:00 MCH 34.1 pg (25.7-33.7) H 01/15/19 07:00 MCHC 33.9 g/dl (32.0-35.9) 01/15/19 07:00 RDW 13.9 % (11.9-15.9) 01/15/19 07:00 Plt Count 269 K/MM3 (134-434) 01/15/19 07:00 MPV 8.3 fl (7.5-11.1) 01/15/19 07:00 Sodium 137 mmol/L (136-145) 01/15/19 07:00 Potassium 4.4 mmol/L (3.5-5.1) 01/15/19 07:00 Chloride 105 mmol/L (98-107) 01/15/19 07:00 Carbon Dioxide 29 mmol/L (21-32) 01/15/19 07:00 Anion Gap 3 MMOL/L (8-16) L 01/15/19 07:00 BUN 10 mg/dL (7-18) 01/15/19 07:00 Creatinine 1.0 mg/dL (0.55-1.3) 01/15/19 07:00 Creat Clearance w eGFR 77.02 (>60) 01/15/19 07:00 Random Glucose 107 mg/dL (74-106) H 01/15/19 07:00 Calcium 9.5 mg/dL (8.5-10.1) 01/15/19 07:00 Total Bilirubin 1.1 mg/dL (0.2-1) H 01/15/19 07:00 AST 18 U/L (15-37) 01/15/19 07:00 ALT 18 U/L (13-61) 01/15/19 07:00 Alkaline Phosphatase 80 U/L (45-117) 01/15/19 07:00 Total Protein 7.6 g/dl (6.4-8.2) 01/15/19 07:00 Albumin 3.6 g/dl (3.4-5.0) 01/15/19 07:00 RPR Titer Nonreactive (NONREACTIVE) 01/15/19 07:00 Labs reviewed Plan: Continue detox increase fluids continue to monitor.
[2019-01-17] MEDS: THIAMINE HCL 100 MG TABLET (FP) PO SCH (22:46)
[2019-01-17] MEDS: risperiDONE 1 MG TABLET (FP) PO SCH (22:46)
[2019-01-18] MEDS: ALBUTEROL SO4 8 GM HFA INHALER IH PRN (02:17)
[2019-01-18] MEDS: ASPIRIN 81 MG CHEWABLE TABLETS PO SCH (10:21)
[2019-01-18] MEDS: chlordiazePOXIDE HCL 10 MG CAPSULE PO SCH ×2 (10:21→22:08)
[2019-01-18] MEDS: AMMONIUM LACTATE 12% LOTION 225 GM BOTTLE TP SCH (10:21)
[2019-01-18] MEDS: PRENATAL VITAMINS W/ FOLIC ACID TABLET (FP) PO SCH (10:22)
[2019-01-18] MEDS: NICOTINE 21 MG/24 HOURS TOPICAL PATCH TD SCH (10:22)
[2019-01-18] MEDS: BUDESONIDE/FORMETEROL FUMARATE 80/4.5 mcg INHALER IH SCH ×2 (10:22→22:08)
--- NOTE | 2019-01-18 14:03 | PN ---
S CIWA - CIWA Score Nausea/Vomitin-No Nausea/No Vomiting Muscle Tremors: 2 Anxiety: 1-Mildly Anxious Agitation: 0-Normal Activity Paroxysmal Sweats: 2 Orientation: 0-Oriented Tacttile Disturbances: 0-None Auditory Disturbances: 0-None Visual Disturbances: 0-None Headache: 1-Very Mild CIWA-Ar Total Score: 6 BHS Progress Note (SOAP) Subjective: Sweating, chills, tremor Objective: 01/18/19 14:00 Last Vital Signs Temp Pulse Resp BP Pulse Ox 97.7 F 59 L 18 133/82 01/18/19 10:16 01/18/19 10:16 01/18/19 10:16 01/18/19 10:16 Laboratory Tests 01/15/19 01/15/19 01/15/19 07:00 07:00 07:00 WBC 8.5 RBC 4.12 Hgb 14.1 Hct 41.4 MCV 100.6 H MCH 34.1 H MCHC 33.9 RDW 13.9 Plt Count 269 MPV 8.3 Sodium 137 Potassium 4.4 Chloride 105 Carbon Dioxide 29 Anion Gap 3 L BUN 10 Creatinine 1.0 Creat Clearance w eGFR 77.02 Random Glucose 107 H Calcium 9.5 Total Bilirubin 1.1 H AST 18 ALT 18 Alkaline Phosphatase 80 Total Protein 7.6 Albumin 3.6 RPR Titer Nonreactive Labs reviewed Assessment: 01/18/19 14:01 Withdrawal symptoms Plan: Continue detox Encouraged PO water hydration
[2019-01-18] MEDS: THIAMINE HCL 100 MG TABLET (FP) PO SCH (22:08)
[2019-01-18] MEDS: risperiDONE 1 MG TABLET (FP) PO SCH (22:08)
[2019-01-18] MEDS: MELATONIN 5 MG TABLETS PO PRN (22:08)
[2019-01-19 06:09] VITALS: BP 127/73; PULSE 52; TEMP 97
[2019-01-19] MEDS: ASPIRIN 81 MG CHEWABLE TABLETS PO SCH (09:18)
[2019-01-19] MEDS: PRENATAL VITAMINS W/ FOLIC ACID TABLET (FP) PO SCH (09:18)
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
== END 2019-01-19 09:30 | disposition home or self-care (01) | DRG 774 ==
LOC: YASAS 14:44 → Y6N 18:19
PROVIDERS: ADMIT Surgery; ATTEND Surgery
PROC: HZ2ZZZZ Detoxification Services for Substance Abuse Treatment (ICD-10-PCS; principal; 2019-01-14)
DX: F10.230 Alcohol dependence with withdrawal, uncomplicated (principal); F14.20 Cocaine dependence, uncomplicated; F17.210 Nicotine dependence, cigarettes, uncomplicated; F19.24 Other psychoactive substance dependence with psychoactive substance-induced mood disorder; F19.282 Other psychoactive substance dependence with psychoactive substance-induced sleep disorder; F31.81 Bipolar II disorder; F20.9 Schizophrenia, unspecified; F32.9 Major depressive disorder, single episode, unspecified; J43.9 Emphysema, unspecified; J45.20 Mild intermittent asthma, uncomplicated; R63.4 Abnormal weight loss; Z68.1 Body mass index [BMI] 19.9 or less, adult; Z87.828 Personal history of other (healed) physical injury and trauma
CPT/HCPCS: 36415; 80053; 85027; 86593; 93005; 93010; 94640; J2794